=== PATIENT | female | born 2000 | race Caucasian/White ===

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

== ENCOUNTER 2019-03-12 21:15 | Emergency (ER) | payer BC ==
[~2019-03-12] VITALS: Ht 175.3 cm; Wt 60.0 kg
[2019-03-12 21:23] VITALS: TEMP 98.4
[2019-03-12 22:08] LABS: BASO % 0.7 % (0.0-2.0); EOS # 0.1 (0.0-0.7); EOS % 2.4 % (0-4.0); GRAN # 2.6 (1.4-6.5); GRAN % 46.2 % (42.2-75.2); HEMATOCRIT 37.8 % (35.0-45.0); HEMOGLOBIN 12.5 g/dl (12.0-15.0); LYMPH # 2.5 (1.2-3.4); LYMPH % 42.9 % (20.0-51.0); MEAN CELL VOLUME 89 fl (80.0-95.0); MEAN CORPUSCULAR HEMOGLOBIN 30 pg (26.0-32.0); MEAN CORPUSCULAR HGB CONC 33 g/dl (33.0-37.0); MEAN PLATELET VOLUME 10.4 fl (7.4-10.4); MONO # 0.4 (0.1-0.6); MONO % 7.5 % (1.7-9.3); PLATELET COUNT 358 K/mm3 (130-400); RED BLOOD COUNT 4.23 M/mm3 (4.10-5.30); REDCELL DISTRIBUTION WIDTH-CV 11.9 % (11.5-14.5)
[2019-03-12 22:23] LABS: ALANINE AMINOTRANSFERASE 12 U/L (9-52); ALBUMIN 4.4 gm/dL (3.5-5.0); ALKALINE PHOSPHATASE 58 U/L (50-136); ANION GAP 10 mmol/L (7-16); AST,SGOT 21 U/L (15-37); BILIRUBIN,TOTAL 0.1 mg/dL (0.0-1.0); BLOOD UREA NITROGEN 15 mg/dL (7-17); C-REACTIVE PROTEIN < 0.5 mg/dL (0.0-0.9); CALCIUM 9.1 mg/dL (8.4-10.2); CARBON DIOXIDE 24 mmol/L (22-30); CHLORIDE 107 mmol/L (98-107); CREATININE, serum 0.74 (0.52-1.25); GLUCOSE 95 mg/dL (74-106); POTASSIUM 3.8 mmol/L (3.4-5.0); SODIUM 140 mmol/L (137-145); TOTAL PROTEIN 7.5 gm/dL (6.4-8.2)
[2019-03-12 22:59] VITALS: BP 115/80; PULSE 65
== END 2019-03-12 23:00 | disposition home or self-care (01) ==
LOC: COL.ER 21:15
PROVIDERS: Emergency Medicine
DX: G43.909 Migraine, unspecified, not intractable, without status migrainosus (principal)
CPT/HCPCS: J1200; J1885; J2550; J3010; J7030

== ENCOUNTER 2019-12-21 13:28 | Emergency (ER) | payer BC ==
[~2019-12-21] VITALS: Ht 175.3 cm; Wt 62.3 kg
[2019-12-21 13:41] VITALS: TEMP 98.2
[2019-12-21] MEDS ORDERED: LEXAPRO20 MG PO (13:57)
[2019-12-21] MEDS ORDERED: ONE-A-DAY WOM200 MCG PO (13:58)
[2019-12-21 15:57] VITALS: BP 105/68; PULSE 63
== END 2019-12-21 15:57 | disposition home or self-care (01) ==
LOC: COL.ER 13:28
DX: R11.2 Nausea with vomiting, unspecified (principal)
CPT/HCPCS: J2550; J7030

== ENCOUNTER 2020-03-22 01:42 | Emergency (ER) | payer BC ==
[~2020-03-22] VITALS: Ht 175.3 cm; Wt 61.4 kg
[~2020-03-22 01:42] MED LIST: LEXAPRO20 MG PO; ONE-A-DAY WOM200 MCG PO
[2020-03-22 01:50] VITALS: TEMP 96.8
[2020-03-22 02:38] LABS: BASO % 0.6 % (0.0-2.0); EOS % 0.4 % (0-4.0); GRAN # 2.9 (1.4-6.5); GRAN % 60.1 % (42.2-75.2); HEMATOCRIT 37.1 % (37.0-47.0); HEMOGLOBIN 12.7 g/dl (12.5-16.0); LYMPH # 1.6 (1.2-3.4); LYMPH % 32.9 % (20.0-51.0); MEAN CELL VOLUME 87 fl (80.0-100.0); MEAN CORPUSCULAR HEMOGLOBIN 30 pg (27.0-31.0); MEAN CORPUSCULAR HGB CONC 34 g/dl (33.0-37.0); MEAN PLATELET VOLUME 9.7 fl (7.4-10.4); MONO # 0.3 (0.1-0.6); MONO % 5.8 % (1.7-9.3); PLATELET COUNT 310 K/mm3 (130-400); RED BLOOD COUNT 4.25 M/mm3 (4.10-5.30)
[2020-03-22 02:50] LABS: ALANINE AMINOTRANSFERASE 13 U/L (4-34); ALBUMIN 4.6 gm/dL (3.5-5.0); ALCOHOL(ethanol),MEDICAL 177 mg/dL; ALKALINE PHOSPHATASE 61 U/L (50-136); ANION GAP 13 mmol/L (7-16); AST,SGOT 27 U/L (15-37); BILIRUBIN,TOTAL 0.2 mg/dL (0.0-1.0); BLOOD UREA NITROGEN 12 mg/dL (7-17); CALCIUM 8.6 mg/dL (8.4-10.2); CARBON DIOXIDE 22 mmol/L (22-30); CHLORIDE 106 mmol/L (98-107); CREATININE, serum 0.67 (0.52-1.25); GLUCOSE 97 mg/dL (74-106); POTASSIUM 3.7 mmol/L (3.4-5.0); SODIUM 141 mmol/L (137-145); TOTAL PROTEIN 7.7 gm/dL (6.4-8.2)
[2020-03-22 03:01] LABS: TROPONIN-I < 0.012 ng/mL (0.000-0.035)
[2020-03-22 05:28] VITALS: BP 111/69; PULSE 110
== END 2020-03-22 05:28 | disposition home or self-care (01) ==
LOC: COL.ER 01:42
PROVIDERS: Emergency Medicine
DX: R06.02 Shortness of breath (principal); R06.00 Dyspnea, unspecified; F10.129 Alcohol abuse with intoxication, unspecified; F41.9 Anxiety disorder, unspecified; F32.9 Major depressive disorder, single episode, unspecified; Z32.02 Encounter for pregnancy test, result negative

== ENCOUNTER 2024-01-09 12:28 | Emergency (ER) | payer BC ==
[~2024-01-09] VITALS: Ht 175.3 cm; Wt 75.0 kg
[2024-01-09 12:31] VITALS: TEMP 98.4
[2024-01-09] MEDS ORDERED: PREDNISONE20 MG PO (14:37)
[2024-01-09 14:46] VITALS: BP 109/68; PULSE 73
== END 2024-01-09 14:46 | disposition home or self-care (01) ==
LOC: COL.ER 12:28
DX: J40 Bronchitis, not specified as acute or chronic (principal)